=== PATIENT | female | born 1945 | race Caucasian/White ===

== ENCOUNTER 2022-08-23 11:11 | Observation (INO) ==
[2022-08-23 11:32] LABS: ABS Lymphocytes 1.3 10^3/ul (1.0-4.8); ABS Monocytes 0.5 10^3/ul (0-0.8); ABS Neutrophils 4.9 10^3/ul (1.5-7.7); Eosinophil % 0.6 %; Hematocrit 40 % (35-47); Hemoglobin 13.6 g/dL (12.0-16.0); Mean Corpuscular HGB Conc 34 g/dL (31-36); Mean Corpuscular Hemoglobin 31 pg (27-31); Mean Corpuscular Volume 91 fL (80-97); Mean Platelet Volume 7.1 fL (7.4-10.4); Platelet Count 294 10^3/uL (150-450); Red Blood Count 4.35 10^6 /uL (3.70-4.87); Red Cell Distribution Width 13 % (10-15); White Blood Count 6.9 10^3/uL (3.5-10.8)
[2022-08-23 11:44] LABS: INR 0.97 (0.89-1.11)
[2022-08-23 12:30] LABS: ALT 18 U/L (7-52); AST 17 U/L (13-39); Albumin 4.5 g/dL (3.2-5.2); Albumin/Globulin Ratio 1.7 (1-3); Alkaline Phosphatase 81 U/L (35-149); Anion Gap 8 mmol/L (2-11); Blood Urea Nitrogen 10 mg/dL (6-24); CO2 Carbon Dioxide 29 mmol/L (22-32); Calcium 9.5 mg/dL (8.6-10.3); Chloride 89 mmol/L (101-111); Globulin 2.7 g/dL (2-4); Glucose 102 mg/dL (70-100); High Sens Troponin Baseline 4 pg/mL (<15); Potassium 3.9 mmol/L (3.5-5.0); Sodium 126 mmol/L (135-145); Total Protein 7.2 g/dL (6.4-8.9); eGFR CKD-EPI 88.5 (>60)
[2022-08-23 13:45] LABS: High Sensitivity Troponin 1 Hr 5 pg/mL (<15)
[2022-08-23 17:46] LABS: Alcohol, S < 13 mg/dL (<13)
[2022-08-23] MEDS ORDERED: Enoxaparin 40 MG/0.4 ML SYR SUBCUT SCH (20:00)
[2022-08-23 22:38] LABS: Albumin/Globulin Ratio 1.7 (1-3); Calcium 9.1 mg/dL (8.6-10.3); Globulin 2.3 g/dL (2-4); Potassium 3.4 mmol/L (3.5-5.0); Total Bilirubin 0.9 mg/dL (0.2-1.0); Total Protein 6.3 g/dL (6.4-8.9); eGFR CKD-EPI 89.1 (>60)
[2022-08-23 23:17] LABS: Osmolality Serum 267 mOsm/kg (275-295)
[2022-08-23 23:25] LABS: Cholesterol 197 mg/dL; HDL Cholesterol 85.2 mg/dL; LDL Cholesterol 93 mg/dL; Triglycerides 93 mg/dL
[2022-08-24 00:42] LABS: Urine Potassium Concentration 41.9 mmol/L
[2022-08-24 01:18] LABS: Urine Osmo 426 mOsm/kg (150-1150)
[2022-08-24] MEDS ORDERED: KCL 20 MEQ/100 ML IVPREMIX 20 MEQ/100 ML BAG IV SCH (02:00)
[2022-08-24] MEDS ORDERED: Famotidine IV 10 MG/ML 2 ml VIAL (20 mg) IV SLOW PU ONE (02:05)
[2022-08-24 06:02] LABS: ABS Lymphocytes 1.3 10^3/ul (1.0-4.8); ABS Monocytes 0.5 10^3/ul (0-0.8); ABS Neutrophils 4.5 10^3/ul (1.5-7.7); Eosinophil % 0.7 %; Hematocrit 38 % (35-47); Hemoglobin 13.1 g/dL (12.0-16.0); Mean Corpuscular HGB Conc 34 g/dL (31-36); Mean Corpuscular Hemoglobin 31 pg (27-31); Mean Corpuscular Volume 91 fL (80-97); Mean Platelet Volume 7.4 fL (7.4-10.4); Platelet Count 285 10^3/uL (150-450); Red Blood Count 4.18 10^6 /uL (3.70-4.87); Red Cell Distribution Width 13 % (10-15); White Blood Count 6.4 10^3/uL (3.5-10.8)
[2022-08-24 06:10] LABS: INR 1.04 (0.89-1.11)
[2022-08-24] MEDS ORDERED: Aminophylline 25 MG/ML VIAL ONE (08:48)
[2022-08-24] MEDS ORDERED: Regadenoson 0.4 MG/5 ML SYRINGE ONE (08:48)
[2022-08-24 12:22] LABS: Magnesium 1.8 mg/dL (1.9-2.7)
[2022-08-24] MEDS ORDERED: Magnesium Sulfate IV 1GM/100ML 1 GM/100 ML BAG IV ONE (12:35)
[2022-08-24 13:42] VITALS: BP 153/76
== END 2022-08-24 13:42 | disposition home or self-care (01) ==
LOC: EDHOLD 11:11 → ED 11:11 → SUATTDRO 19:33 → EDHOLD 08-24 13:41
PROVIDERS: ADMIT Internal Medicine; ATTEND Internal Medicine